=== PATIENT | female | born 1965 | race African-American/Black ===

== ENCOUNTER → 2017-09-11 | Outpatient (CLI) | payer OTHER | LOC: RAD 11:58 | DX: M25.462 Effusion, left knee (principal); M25.762 Osteophyte, left knee ==

== ENCOUNTER → 2017-09-27 | Outpatient (CLI) | payer OTHER | LOC: MRI 06:05 | DX: S83.242A Other tear of medial meniscus, current injury, left knee, initial encounter (principal); M25.462 Effusion, left knee; M22.42 Chondromalacia patellae, left knee; M71.22 Synovial cyst of popliteal space [Baker], left knee; X58.XXXA Exposure to other specified factors, initial encounter; Y93.89 Activity, other specified; Y92.89 Other specified places as the place of occurrence of the external cause; Y99.8 Other external cause status ==

== ENCOUNTER → 2021-06-01 | Outpatient (CLI) | payer OTHER | LOC: CAT 14:27 | PROVIDERS: ATTEND Internal Medicine Cardiovascular Disease | DX: Z13.6 Encounter for screening for cardiovascular disorders (principal); I25.10 Atherosclerotic heart disease of native coronary artery without angina pectoris; E78.00 Pure hypercholesterolemia, unspecified ==

== ENCOUNTER → 2021-06-14 | Outpatient (CLI) | payer BC, OTHER | LOC: SJCVCIMAG 07:04 | PROVIDERS: ATTEND Internal Medicine Cardiovascular Disease | DX: I49.3 Ventricular premature depolarization (principal); E78.5 Hyperlipidemia, unspecified; I10 Essential (primary) hypertension ==